=== PATIENT | female | born 1935 | race Caucasian/White ===

== ENCOUNTER 2018-05-31 11:35 | Emergency (ER) | payer MEDICARE ==
[2018-05-31 11:58] LABS: ABSOLUTE BASOPHILS # (AUTO) 0.1 10^3/uL (0.0-0.2); ABSOLUTE EOSINOPHILS # (AUTO) 0.1 10^3/uL (0.0-0.6); ABSOLUTE LYMPHOCYTES (AUTO) 2.4 10^3/uL (0.5-4.7); ABSOLUTE MONOCYTES (AUTO) 0.4 10^3/uL (0.1-1.4); ABSOLUTE NEUT (AUTO) 2.5 10^3/uL (1.7-8.2); EOSINOPHILS % (AUTO) 0.9 % (0-6); HEMATOCRIT 39.5 % (36.0-47.0); HEMOGLOBIN 13.4 g/dL (12.0-15.5); INTERNATIONAL RATION (INR) 1.03; LYMPHOCYTES % (AUTO) 44.6 % (13-45); MEAN CORPUSCULAR HGB CONC 33.9 g/dL (32.0-36.0); MEAN CORPUSCULAR VOLUME 86 fl (80-97); MONOCYTES % (AUTO) 7.1 % (3-13); PLATELET COUNT 269 10^3/uL (150-450); RED BLOOD COUNT 4.62 10^6/uL (3.72-5.28); RED CELL DISTRIBUTION WIDTH 13.5 % (11.5-14.0); SEGMENTED NEUTROPHILS % (AUTO) 46.4 % (42-78); TOTAL CELLS COUNTED % (AUTO) 100 %; WHITE BLOOD COUNT 5.4 10^3/uL (4.0-10.5)
[2018-05-31 11:59] LABS: PARTIAL THROMBOPLASTIN TIME 32.6 SEC (23.5-35.8)
--- NOTE | 2018-05-31 12:08 | RADIOLOGY REPORT (SQ) ---
EXAM DESCRIPTION: CT HEAD WITHOUT COMPLETED DATE/TIME: 05/31/2018 11:46 am REASON FOR STUDY: Facial droop COMPARISON: None. TECHNIQUE: Axial images acquired through the brain without intravenous contrast. Images reviewed wi th bone, brain and subdural windows. Additional sagittal and coronal reconstructions were generated. Images stored on PACS. All CT scanners at this facility use dose modulation, iterative reconstruction, and/or weight based d osing when appropriate to reduce radiation dose to as low as reasonably achievable (ALARA). [facility]: Dose Right [facility]: CareDose [facility]: Dose Right [facility]: Teradose 4D [facility]: [employer] RADIATION DOSE: CT Rad equipment meets quality standard of care and radiation dose reduction techniq ues were employed. CTDIvol: 53.2 mGy. DLP: 1017 mGy-cm. mGy. LIMITATIONS: None. FINDINGS: VENTRICLES: Normal size and contour. CEREBRUM: No masses. No hemorrhage. No midline shift. No evidence for acute infarction. Normal gra y/white matter differentiation. Age-appropriate bifrontal and biparietal minimal low density in the white matter from chronic small vessel ischemic change. CEREBELLUM: No masses. No hemorrhage. No alteration of density. No evidence for acute infarction. EXTRAAXIAL SPACES: No fluid collections. No masses. ORBITS AND GLOBE: No intra- or extraconal masses. Normal contour of globe without masses. CALVARIUM: No fracture. PARANASAL SINUSES: No fluid or mucosal thickening. SOFT TISSUES: No mass or hematoma. OTHER: No other significant finding. IMPRESSION: No acute findings. Age-appropriate minimal small vessel white matter disease. EVIDENCE OF ACUTE STROKE: NO. COMMUNICATION The critical information above was relayed directly by me Pertinent findings on the imaging study reported as a CRITICAL RESULT to Dr Taylor at11:48 on 018. Category of Critical Result: CT code stroke Quality ID # [id number]: Final reports with documentation of one or more dose reduction techniques (e.g., Au tomated exposure control, adjustment of the mA and/or kV according to patient size, use of iterative reconstruction technique) TECHNICAL DOCUMENTATION: JOB ID: [id number] [employer]- All Rights Reserved Reading location - IP/workstation name: [email or web address] [id number]
[2018-05-31 12:16] LABS: ALANINE AMINOTRANSFERASE 22 U/L (9-52); ALBUMIN 4.2 g/dL (3.5-5.0); ALKALINE PHOSPHATASE 53 U/L (38-126); ANION GAP 11 (5-19); ASPARTATE AMINO TRANSFERASE 27 U/L (14-36); BILIRUBIN,DIRECT 0.2 mg/dL (0.0-0.4); BILIRUBIN,TOTAL 0.7 mg/dL (0.2-1.3); BLOOD UREA NITROGEN 16 mg/dL (7-20); CALCIUM 10.2 mg/dL (8.4-10.2); CARBON DIOXIDE 32 mmol/L (22-30); CHLORIDE 96 mmol/L (98-107); CREATINE KINASE 32 U/L (30-135); GLUCOSE 151 mg/dL (75-110); SODIUM 138.7 mmol/L (137-145); TOTAL PROTEIN 6.8 g/dL (6.3-8.2)
--- NOTE | 2018-05-31 12:25 | RADIOLOGY REPORT (SQ) ---
EXAM DESCRIPTION: CHEST SINGLE VIEW COMPLETED DATE/TIME: 05/31/2018 12:08 pm REASON FOR STUDY: Facial droop COMPARISON: CT chest 11/09/2010 EXAM PARAMETERS: NUMBER OF VIEWS: One view. TECHNIQUE: Single frontal radiographic view of the chest acquired. RADIATION DOSE: NA LIMITATIONS: None. FINDINGS: LUNGS AND PLEURA: No opacities, masses or pneumothorax. No pleural effusion. MEDIASTINUM AND HILAR STRUCTURES: No masses. Contour normal. HEART AND VASCULAR STRUCTURES: Heart normal in size. Normal vasculature. BONES: No acute findings. HARDWARE: None in the chest. OTHER: No other significant finding. IMPRESSION: NO ACUTE RADIOGRAPHIC FINDING IN THE CHEST. TECHNICAL DOCUMENTATION: JOB ID: [id number] [employer]- All Rights Reserved Reading location - IP/workstation name: [email or web address]
[2018-05-31 12:28] LABS: CREATINE KINASE MB 0.76 ng/mL (<4.55)
[2018-05-31 12:29] LABS: TROPONIN I < 0.012 ng/mL
--- NOTE | 2018-05-31 13:23 | ER Document Report ---
ED General - General Chief Complaint: S/S of Possible Stroke Stated Complaint: POSSIBLE STROKE Notes: Patient brought in by EMS with chief complaint, according to them, of unequal pupils and left facial drooping and, therefore, a stroke alert. On talking to the patient and family, patient was at her doctor's office to be seen by her automatic steel tie adjuster and then by her primary care provider. She has been followed by Dr. Gastelum, automatic steel tie adjuster at [facility] for recent atrial fibrillation and has been put on several medications, including flecainide to treat this disorder. She was therefore a follow-up visit today and everything was fine and she was discharged from the automatic steel tie adjuster. She has a chronic lower back pain which causes severe cramping muscular lumbar back pains. Earlier today, before she went to her doctor's office, she took a muscle relaxer pill and a hydrocodone pill for pain. She was having one of those episodes of severe pain in the left lumbar back region on her way out of her doctors office and was sitting down waiting to leave the office go home and she became very diaphoretic and weak all over and, depending upon who you ask, she either passed out or almost passed out. She also felt some weakness of her left arm and left leg. She has not had this weakness associated with her pains previously. Her daughter and granddaughter who are here with the patient had not heard anything about her having any facial drooping or weakness or pupil size being different and no one seems to know where her EMS got that information. Patient was brought in as a stroke alert. Patient says that she is been feeling weak and nauseated but not vomiting. She did eat something this morning. Denies abdominal pain or chest pain. Denies difficulty breathing or shortness of breath. No history of any urinary tract symptoms, frequency, blood, etc. Never had kidney stones. Patient has a history of appendectomy, hysterectomy, and cholecystectomy. NIDDM , A. fib, in remission. She is on Eliquis. TRAVEL OUTSIDE OF THE [place] IN LAST 30 DAYS: No - Related Data Allergies/Adverse Reactions: codeine Allergy (Verified 05/31/18 12:49) meperidine [From Demerol] Allergy (Verified 05/31/18 12:49) Past Medical History - Social History Smoking Status: Former Smoker Chew tobacco use (# tins/day): No Frequency of alcohol use: None Drug Abuse: None Family History: Reviewed & Not Pertinent Patient has suicidal ideation: No Patient has homicidal ideation: No - Past Medical History Cardiac Medical History: Reports: Hx Hypertension - Takes Univasc twice a day, one of the doses is combined with HCTZ. Endocrine Medical History: Reports: Hx Diabetes Mellitus Type 2 - Takes only metformin Past Surgical History: Reports: Hx Appendectomy, Hx Cholecystectomy, Hx Hysterectomy Review of Systems - Review of Systems Notes: REVIEW OF SYSTEMS: CONSTITUTIONAL : Denies fever. EENT: Denies eye, ear, nose or mouth or throat pain or other symptoms. CARDIOVASCULAR: Denies chest pain. RESPIRATORY: Denies cough, chest congestion, or shortness of breath. GASTROINTESTINAL: Denies abdominal pain. Having significant nausea but not vomiting. No diarrhea. GENITOURINARY: Denies difficulty or painful urinating, urinary frequency, blood in urine. MUSCULOSKELETAL: Denies back pain except see HPI. Denies neck pain. Denies joint pain or swelling. SKIN: Denies rash or skin lesions. NEUROLOGICAL: See HPI. Denies headache. Denies sensory loss or motor deficits. ALL OTHER SYSTEMS REVIEWED AND NEGATIVE. Physical Exam - Vital signs Vitals: Pulse Ox 97 05/31/18 11:37 Interpretation: Normal - Notes Notes: PHYSICAL EXAMINATION: GENERAL: Well-appearing, in no acute distress. No complaints at this time. Says her back pain is better. HEAD: Atraumatic, normocephalic. No facial drooping or asymmetry to me. EYES: Pupils equal round and reactive to light, extraocular movements intact. ENT: oropharynx clear without exudates. Moist mucous membranes. NECK: Normal range of motion, supple. No carotid bruits heard. LUNGS: Breath sounds clear and equal bilaterally. HEART: Regular rate and rhythm without murmurs. No irregular rhythm. ABDOMEN: Soft, nontender. No guarding or rebound. No masses. BACK: No tenderness throughout entire back. EXTREMITIES: Normal range of motion without pain. NEUROLOGICAL: Normal speech, normal gait. Normal sensory, motor, and reflex exams. Awake, alert, and oriented x3. PSYCH: Normal mood, normal affect. SKIN: Warm, dry, no rashes. Course - Re-evaluation Re-evalutation: 05/31/18 13:[address] Gastelum, patient's automatic steel tie adjuster. He says that she has not had a right bundle-branch before but he attributes it to her medications which include flecainide and a beta-aureliano. He noted a right bundle on her EKG when EMS was picking her up from the office. He did not have any concerns about this finding at this time. 05/31/18 19:00 Patient remained stable throughout her stay in our department. Her workup came back all essentially normal. I suspect she had a vasovagal response to painful back pain which is chronic. Reviewed all the labs and EKG and x-rays with the patient. Made her aware of the right bundle branch block present on her EKG today. I feel she can travel home and follow-up with her primary care. - Vital Signs Vital signs: Temp Pulse Resp BP Pulse Ox 53 L 11 L 153/58 H 97 05/31/18 11:52 05/31/18 15:01 05/31/18 15:01 05/31/18 14:59 - Laboratory Result Diagrams: 05/31/18 11:18 05/31/18 11:18 Laboratory results interpreted by me: 05/31/18 11:18 Chloride 96 L Carbon Dioxide 32 H Glucose 151 H - Diagnostic Test Radiology reviewed: Image reviewed, Reports reviewed - CTA of the chest, abdomen , and pelvis is essentially normal. No evidence of dissection or aneurysms. - EKG Interpretation by Me EKG shows normal: Sinus rhythm Rate: Normal [place]/QRS: RBBB - New finding since EKG done here 2 years ago. Discussed with patient's automatic steel tie adjuster, Dr. Gastelum, who says that that is apparently a new finding, but he is not concerned about it because she is on several new medications treating her atrial fib, which could cause her to develop a bundle branch block. Discharge - Discharge Clinical Impression: Left flank pain, chronic, Vasovagal episode, Near syncope Condition: Stable Disposition: HOME, SELF-CARE Additional Instructions: Flank Pain We weren't able to prove an exact cause for your flank pain. Pain in the flank can be caused by a muscle strain or spasm. Sometimes a kidney stone causes pain, but can't be found on our tests. Infection in the kidney should be evident on a urine test. Early shingles can occasionally cause flank pain, without the rash that proves the diagnosis. On rare occasions, disease of the pancreas, aorta, spleen, or colon can create pain in the flank. At this time, there's no evidence of a dangerous condition, and it seems safe for you to be at home. If the pain goes away and does not come back, no further testing will be needed. If pain persists, or becomes more severe, we may need to repeat some tests or order additional new testing. Blood in the urine, urgency to urinate frequently, and pain that radiates to the groin can indicate a kidney stone. Fever may mean that the pain is due to infection, either of the kidney or the colon (diverticulitis). If your pain is early shingles, you should develop an eruption of blisters in the painful area within a few days. Call the doctor or return if you have pain that is spreading or becoming more severe, pain that does not resolve with time, fever, or any other new symptoms. Vasovagal Symptoms Your symptoms seem to be due to a fall in blood pressure, caused by the interaction of your nervous system with your circulatory system. This can result in abnormally slow pulse rate, faintness, abnormal sensations, low blood pressure, difficulty with vision, or fainting (syncope). Vasovagal symptoms may be brought on by emotional distress, pain, dehydration, bleeding, or medication effects. Often, no cause can be identified. Your exam has revealed no signs of a serious problem. Usually, no further tests are required. However, if further workup has been recommended it's important that you follow up as instructed. Should you feel lightheaded or "about to faint," you should sit or lie down as quickly as possible. The episode will usually pass. Recurring symptoms will require further evaluation to determine the cause. Call the physician if you develop severe prolonged dizziness, headache, chest pain, shortness of breath, or other new symptoms. NEAR SYNCOPAL EPISODE: Syncope or near syncope (fainting or near-fainting) can occur from many different health problems. Or it can be a simple fainting spell requiring no treatment. It is safe for you to go home, but further evaluation will likely be necessary. Your work-up may include tests for internal bleeding, heart disease, medication problems, or near-strokes. Tests are not always required, however, depending on the nature of your problem. The warning signs of an impending faint include: dizziness, lightheadedness , nausea, hot flashes, tingling, and weakness. If this happens, lay down and put your feet up, then wait until all of these symptoms have passed before standing up again. If these episodes become recurrent, or if you develop chest pain, heart palpitations, mental confusion, blurred vision, or headache, then you should call the physician, or go to the emergency room. NORMAL EXAM AND WORKUP: At this time, your examination and workup show no significant abnormality. No significant abnormal physical findings were noted. All laboratory, EKG, and imaging (x-ray, CT scans, ultrasound) studies that were ordered show no significant abnormality. Although your examination and all studies that were ordered showed no significant abnormal finding, there are no examinations and no studies that are 100% accurate. There is always the possibility that some abnormality could exist and not be detected with physical examination or within the limits and capabilities of laboratory and other studies. You should return or follow up as you were instructed on your visit today for further evaluation if your symptoms do not resolve. At this time, your entire workup is completely normal. I feel it safe for you to go home. If you have new or worsening symptoms at any time, return for us to reevaluate your condition. FOLLOW-UP CARE: If you have been referred to a physician for follow-up care, call the physician s office for an appointment as you were instructed or within the next two days. If you experience worsening or a significant change in your symptoms, notify the physician immediately or return to the Emergency Department at any time for re-evaluation. Referrals: SANCHEZ BOYD MD [Primary Care Provider] - Follow up as needed
--- NOTE | 2018-05-31 13:56 | RADIOLOGY REPORT (SQ) ---
EXAM DESCRIPTION: CTA CHEST; CTA ABDOMEN/PELVIS W WO COMPLETED DATE/TIME: 05/31/2018 1:30 pm REASON FOR STUDY: Near syncope, severe left lumbar back pain COMPARISON: None. CONTRAST TYPE AND DOSE: contrast/concentration: Isovue 370.00 mg/ml; Total Contrast Delivered: 60.0 ml; Total Saline Delivered: 70.0 ml Contrast bolus optimized for the thoracic and abdominal aorta RENAL FUNCTION: Creatinine 0.73. TECHNIQUE: CT Angiogram of the chest performed using helical scanning technique with dynamic intrave nous contrast injection. Images reviewed with lung, soft tissue and bone windows. Reconstructed obli que, coronal and sagittal MPR images through the pulmonary arteries and aorta reviewed. All images s tored on PACS. CT Angio of the abdomen and pelvis performed with intravenous and without oral contrastusing helical scanning technique with dynamic intravenous contrast injection. Images reviewed with lung, soft tiss ue and bone windows. Reconstructed coronal and sagittal MPR images of the abdominal aorta reviewed. Delayed images for evaluation of the urinary system also acquired and evaluated. All images stored o n PACS. All CT scanners at this facility use dose modulation, iterative reconstruction, and/or weight based d osing when appropriate to reduce radiation dose to as low as reasonably achievable (ALARA). [facility]: Dose Right [facility]: CareDose [facility]: Dose Right [facility]: Teradose 4D [facility]: [employer] RADIATION DOSE: CT Rad equipment meets quality standard of care and radiation dose reduction techniq ues were employed. CTDIvol: 7.0 - 17.0 mGy. DLP: 960 mGy-cm. . LIMITATIONS: None. FINDINGS: CHEST: LUNGS AND PLEURA: No opacities, nodules, masses. No pneumothorax. No effusions. HILAR AND MEDIASTINAL STRUCTURES: No identified masses or abnormal nodes. HEART AND VASCULAR STRUCTURES: No thoracic aortic aneurysm or dissection. No central pulmonary embol i. No pericardial effusion. HARDWARE: None. THYROID AND OTHER SOFT TISSUES: No masses. No adenopathy. BONES: No significant finding. OTHER: No other significant finding. ABDOMEN AND PELVIS: LIVER: Normal size. No masses. No dilated ducts. SPLEEN: Normal size. No focal lesions. PANCREAS: No masses. No significant calcifications. No adjacent inflammation or peripancreatic fluid collections. Pancreatic duct not dilated. GALLBLADDER: Surgically absent ADRENAL GLANDS: No significant masses or asymmetry. RIGHT KIDNEY AND URETER: No solid masses. No significant calcification. No hydronephrosis or hydroure ter. LEFT KIDNEY AND URETER: No solid masses. No significant calcification. No hydronephrosis or hydrouret er. AORTA AND VESSELS: No aneurysm. No dissection. Renal arteries, SMA, celiac without stenosis. RETROPERITONEUM: No retroperitoneal adenopathy, hemorrhage or masses. BOWEL AND PERITONEAL CAVITY: No CT evidence of bowel obstruction. No free intraperitoneal air or flu id. Moderate stool in the colon APPENDIX: Not identified, surgically absent according to patient history ABDOMINAL WALL: No masses. No hernias. PELVIS: No mass or free fluid. Normal bladder. Post hysterectomy BONES: No significant or acute findings. OTHER: Report discussed with Dr. Taylor in the emergency room IMPRESSION: No CT angio evidence of thoracic or abdominal aortic aneurysm or dissection. No acute cardiopulmonary changes. No bowel obstruction or free intraperitoneal air/ fluid. Post cholecystectomy appendectomy and hysterectomy TECHNICAL DOCUMENTATION: JOB ID: [id number] Quality ID # [id number]: Final reports with documentation of one or more dose reduction techniques (e.g., Au tomated exposure control, adjustment of the mA and/or kV according to patient size, use of iterative reconstruction technique) 2010 [employer]- All Rights Reserved Reading location - IP/workstation name: [email or web address]
[2018-05-31 14:28] LABS: APPEARANCE,URINE CLEAR; BILIRUBIN,URINE NEGATIVE (NEGATIVE); COLOR,URINE YELLOW; GLUCOSE, URINE NEGATIVE (NEGATIVE); KETONES,URINE NEGATIVE (NEGATIVE); LEUKOCYTE ESTERASE,URINE NEGATIVE (NEGATIVE); NITRITE,URINE NEGATIVE (NEGATIVE); PROTEIN,URINE NEGATIVE (NEGATIVE); URINE SPECIFIC GRAVITY 1.018; UROBILINOGEN,URINE NEGATIVE mg/dL (<2.0)
[2018-05-31 15:23] VITALS: BP 153/58
--- NOTE | 2018-05-31 21:30 | EKG REPORT ---
SEVERITY:- ABNORMAL ECG - SINUS RHYTHM RIGHT BUNDLE BRANCH BLOCK : Confirmed by: Elisa Hardy MD 31-May-2018 21:28:47
== END 2018-05-31 15:27 | disposition home or self-care (01) ==
LOC: ER 11:35
DX: G89.29 Other chronic pain (principal); M54.5 Low back pain; R10.9 Unspecified abdominal pain; R53.1 Weakness; R11.0 Nausea; R55 Syncope and collapse; R42 Dizziness and giddiness; E11.9 Type 2 diabetes mellitus without complications; I48.91 Unspecified atrial fibrillation; Z87.891 Personal history of nicotine dependence; Z90.710 Acquired absence of both cervix and uterus; Z79.84 Long term (current) use of oral hypoglycemic drugs; Z90.49 Acquired absence of other specified parts of digestive tract; Z79.02 Long term (current) use of antithrombotics/antiplatelets
CPT/HCPCS: 36415; 70450; 71045; 71275; 74174; 80053; 81001; 82550; 82553; 84484; 85025; 85610; 85730; 93005; 93010; 99285

== ENCOUNTER 2019-01-19 12:25 | Emergency (ER) | payer MEDICARE ==
[2019-01-19] MEDS ORDERED: ASPIRIN 81 MG TABLET, CHEWABLE PO ONE (13:37)
--- NOTE | 2019-01-19 14:45 | RADIOLOGY REPORT (SQ) ---
EXAM DESCRIPTION: CHEST SINGLE VIEW COMPLETED DATE/TIME: 01/19/2019 2:35 pm REASON FOR STUDY: syncope COMPARISON: CT chest dated 05/31/2018 EXAM PARAMETERS: NUMBER OF VIEWS: One view. TECHNIQUE: Single frontal radiographic view of the chest acquired. RADIATION DOSE: NA LIMITATIONS: None. FINDINGS: LUNGS AND PLEURA: No opacities, masses or pneumothorax. No pleural effusion. MEDIASTINUM AND HILAR STRUCTURES: No masses. Contour normal. HEART AND VASCULAR STRUCTURES: Heart normal in size. Normal vasculature. BONES: No acute findings. HARDWARE: None in the chest. OTHER: No other significant finding. IMPRESSION: NO ACUTE RADIOGRAPHIC FINDING IN THE CHEST. TECHNICAL DOCUMENTATION: JOB ID: [id number] [employer]- All Rights Reserved Reading location - IP/workstation name: [email or web address]
--- NOTE | 2019-01-19 14:59 | ER Document Report ---
ED General - General Chief Complaint: Syncope Stated Complaint: SYNCOPE Time Seen by Provider: 01/19/19 13:29 Primary Care Provider: SANCHEZ BOYD MD [Primary Care Provider] - Follow up as needed Notes: Very well-appearing 83-year-old female with paroxysmal A. fib on Eliquis, hypertension brought in by ambulance from [facility] of her doctor's appointment and she had a syncopal episode. Patient states she was finished with her appointment was standing there when she felt weird got lightheaded and fell to her knees where her granddaughter caught her and set her down. She had an episode of urinary incontinence during that time. Orthostatic vital signs were performed by EMS and were negative. It is unclear what happened but had a similar episode one year ago. Workup was negative then. Patient denies fever, chills, shortness of breath or chest pain, nausea, vomiting, diarrhea, urinary TRAVEL OUTSIDE OF THE [place] IN LAST 30 DAYS: No - Related Data Allergies/Adverse Reactions: codeine Allergy (Verified 05/31/18 12:49) meperidine [From Demerol] Allergy (Verified 05/31/18 12:49) Past Medical History - Social History Smoking Status: Never Smoker Family History: Reviewed & Not Pertinent - Past Medical History Cardiac Medical History: Reports: Hx Hypertension - Takes Univasc twice a day, one of the doses is combined with HCTZ. Endocrine Medical History: Reports: Hx Diabetes Mellitus Type 2 - Takes only metformin Renal/ Medical History: Denies: Hx Peritoneal Dialysis Past Surgical History: Reports: Hx Appendectomy, Hx Cholecystectomy, Hx Hysterectomy Review of Systems - Review of Systems Constitutional: See HPI EENT: No symptoms reported Cardiovascular: See HPI Respiratory: See HPI Gastrointestinal: See HPI Genitourinary: See HPI Female Genitourinary: No symptoms reported Musculoskeletal: No symptoms reported Skin: No symptoms reported Hematologic/Lymphatic: No symptoms reported Neurological/Psychological: See HPI Physical Exam - Vital signs Vitals: Temp Pulse Resp BP Pulse Ox 98 F 55 L 10 L 140/60 H 100 01/19/19 12:37 01/19/19 12:37 01/19/19 12:37 01/19/19 12:37 01/19/19 12:37 - Notes Notes: PHYSICAL EXAMINATION: Reviewed vital signs and charting by RN GENERAL: Alert, interacts well. No acute distress. HEAD: Normocephalic, atraumatic. EYES: Pupils equal, round, and reactive to light. Extraocular movements intact. ENT: Oral mucosa moist, tongue midline. NECK: Full range of motion. Supple. Trachea midline. LUNGS: Clear to auscultation bilaterally, no wheezes, rales, or rhonchi. No respiratory distress. HEART: Regular rate and rhythm. No murmur ABDOMEN: soft, non-tender. Non-distended. Bowel sounds present in all 4 quadrants. no McBurney's point tenderness, no Guerra sign. EXTREMITIES: Moves all 4 extremities spontaneously. No edema, No cyanosis. BACK: no cervical, thoracic, lumbar midline tenderness. No saddle anesthesia, normal distal neurovascular exam. NEUROLOGICAL: Alert and oriented x3. Normal speech. PSYCH: Normal affect, normal mood. SKIN: Warm, dry, normal turgor. No rashes or lesions noted. Course - Re-evaluation Re-evalutation: 01/19/19 14:58 Overall well-appearing 83-year-old female with syncopal episode. Workup initiated. Patient with sinus bradycardia at baseline because she is on metoprolol, flecainide, and some eyedrops that she states will lower her heart rate. Granddaughter at bedside states patient does frequently hold her breath. Patient did not hit her head so I do not believe a CT head is necessary at this time. 01/19/19 15:59 All lab work was normal. After further interview granddaughter states that patient frequently holds her breath and with her baseline bradycardia she most likely had a vasovagal episode. Heart score 3. I have very low suspicion for ACS. At this time patient is safe and stable for discharge home. - Vital Signs Vital signs: Temp Pulse Resp BP Pulse Ox 98.0 F 55 L 14 145/59 H 99 01/19/19 13:00 01/19/19 12:37 01/19/19 15:02 01/19/19 15:02 01/19/19 15:02 - Laboratory Result Diagrams: 01/19/19 14:37 01/19/19 14:37 Laboratory results interpreted by me: 01/19/19 14:37 Sodium 134.7 L Glucose 112 H Discharge - Discharge Clinical Impression: Syncope Qualifiers: Syncope type: vasovagal syncope Qualified Code(s): R55 - Syncope and collapse Disposition: HOME, SELF-CARE Instructions: Near Syncopal Episode ([facility]) Additional Instructions: You were seen in the emergency department this afternoon for passing out. Because your heart rate is so low at his baseline and the fact that your granddaughter states she tend to hold your breath he very well could have had what is called a vasovagal syncopal episode. This is when the vagus nerve gets stimulated from things like holding her breath and it causes your heart rate to lower which causes you to pass out. All of your lab work and the workup today was negative for any emergent process. It would be worthwhile to follow-up with your radio message router to discuss this and see if there is any medication changes that can be made. Also, it might be beneficial to follow-up with a welding machine operator arc to get to the root cause of this gas problem that you are having. If you pass out again, have any extremity weakness, facial droop, severe chest pain or shortness of breath, please merely return to the emergency department. Referrals: SANCHEZ BOYD MD [Primary Care Provider] - Follow up as needed
[2019-01-19 15:06] LABS: ABSOLUTE LYMPHOCYTES (AUTO) 2.1 10^3/uL (0.5-4.7); ABSOLUTE MONOCYTES (AUTO) 0.4 10^3/uL (0.1-1.4); ABSOLUTE NEUT (AUTO) 4.4 10^3/uL (1.7-8.2); BASOPHILS % (AUTO) 0.6 % (0-2); EOSINOPHILS % (AUTO) 0.5 % (0-6); HEMATOCRIT 37.4 % (36.0-47.0); HEMOGLOBIN 12.7 g/dL (12.0-15.5); LYMPHOCYTES % (AUTO) 30.3 % (13-45); MEAN CORPUSCULAR HEMOGLOBIN 29.2 pg (27.0-33.4); MEAN CORPUSCULAR VOLUME 86 fl (80-97); MONOCYTES % (AUTO) 5.6 % (3-13); PLATELET COUNT 249 10^3/uL (150-450); RED BLOOD COUNT 4.36 10^6/uL (3.72-5.28); RED CELL DISTRIBUTION WIDTH 13.5 % (11.5-14.0); TOTAL CELLS COUNTED % (AUTO) 100 %; WHITE BLOOD COUNT 6.9 10^3/uL (4.0-10.5)
[2019-01-19 15:12] LABS: ALANINE AMINOTRANSFERASE 23 U/L (9-52); ALBUMIN 4.2 g/dL (3.5-5.0); ALKALINE PHOSPHATASE 68 U/L (38-126); ANION GAP 9 (5-19); ASPARTATE AMINO TRANSFERASE 29 U/L (14-36); BILIRUBIN,DIRECT 0.2 mg/dL (0.0-0.4); BILIRUBIN,TOTAL 0.5 mg/dL (0.2-1.3); BLOOD UREA NITROGEN 14 mg/dL (7-20); CALCIUM 9.9 mg/dL (8.4-10.2); CARBON DIOXIDE 28 mmol/L (22-30); CHLORIDE 98 mmol/L (98-107); GLUCOSE 112 mg/dL (75-110); POTASSIUM 4.3 mmol/L (3.6-5.0); SODIUM 134.7 mmol/L (137-145); TOTAL PROTEIN 6.4 g/dL (6.3-8.2)
[2019-01-19 19:02] VITALS: BP 129/49
--- NOTE | 2019-01-19 21:56 | EKG REPORT ---
SEVERITY:- BORDERLINE ECG - SINUS RHYTHM BORDERLINE IVCD WITH LAD : Confirmed by: Alma Ruvalcaba 19-Jan-2019 21:55:35
== END 2019-01-19 19:02 | disposition home or self-care (01) ==
LOC: ER 12:25
DX: R55 Syncope and collapse (principal); I48.0 Paroxysmal atrial fibrillation; Z79.01 Long term (current) use of anticoagulants; I10 Essential (primary) hypertension; R32 Unspecified urinary incontinence; Z79.899 Other long term (current) drug therapy; E11.9 Type 2 diabetes mellitus without complications; Z79.84 Long term (current) use of oral hypoglycemic drugs
CPT/HCPCS: 36415; 71045; 80053; 84484; 85025; 93005; 93010; 99284

== ENCOUNTER 2019-12-25 00:02 | Observation (INO) | payer MEDICARE ==
--- NOTE | 2019-12-25 00:20 | ER Document Report ---
ED Medical Screen (RME) - General TRAVEL OUTSIDE OF THE U.S. IN LAST 30 DAYS: No <JASPER GARCIA - Last Filed: 12/25/19 00:19> <BRAD WALDEN - Last Filed: 12/25/19 01:46> - General Chief Complaint: Chest Tightness Stated Complaint: CHEST TIGHTNESS/FEELS LIKE HIGH PULSE Time Seen by Provider: 12/25/19 00:18 Primary Care Provider: SANCHEZ BOYD MD [Primary Care Provider] - Follow up as needed Notes: 84-year-old female with history of A. fib presents for dizziness, palpitations, chest tightness that started tonight around 10 PM. Patient states she felt a little lightheaded earlier in the day. Patient states she checked her heart rate and it was in the 140s for over an hour before she decided to come in. Lungs clear to auscultation bilaterally. I have greeted and performed a rapid initial assessment of this patient. A comprehensive ED assessment and evaluation of the patient, analysis of test results and completion of the medical decision making process with be conducted by additional ED providers. (JASPER GARCIA) - Related Data Allergies/Adverse Reactions: codeine Allergy (Verified 12/25/19 00:18) meperidine [From Demerol] Allergy (Verified 12/25/19 00:18) Past Medical History - Past Medical History Cardiac Medical History: Reports: Hx Hypertension - Takes Univasc twice a day, one of the doses is combined with HCTZ. Endocrine Medical History: Reports: Hx Diabetes Mellitus Type 2 - Takes only metformin Renal/ Medical History: Denies: Hx Peritoneal Dialysis Past Surgical History: Reports: Hx Appendectomy, Hx Cholecystectomy, Hx Hysterectomy <JASPER GARCIA - Last Filed: 12/25/19 00:19> Physical Exam - Vital signs Vitals: Temp Pulse Resp BP Pulse Ox 98.2 F 81 18 150/75 H 97 12/25/19 00:14 12/25/19 00:14 12/25/19 00:14 12/25/19 00:14 12/25/19 00:14 Course - Laboratory Result Diagrams: 12/25/19 00:30 12/25/19 00:30 - EKG Interpretation by Ks EKG shows normal: Sinus rhythm, [place], Intervals, QRS Complexes Rate: Normal [place]/QRS: RBBB When compared to previous EKG there are: Other - new RBBB <BRAD WALDEN H - Last Filed: 12/25/19 01:46> - Vital Signs Vital signs: Temp Pulse Resp BP Pulse Ox 98.2 F 81 18 150/75 H 97 12/25/19 00:14 12/25/19 00:14 12/25/19 00:14 12/25/19 00:14 12/25/19 00:14 - Laboratory Laboratory results interpreted by me: 12/25/19 00:30 Sodium 133.1 L BUN 22 H Glucose 148 H Doctor's Discharge <JASPER GARCIA R - Last Filed: 12/25/19 00:19> <BRAD WALDEN - Last Filed: 12/25/19 01:46> - Discharge Referrals: SANCHEZ BOYD MD [Primary Care Provider] - Follow up as needed
[2019-12-25] MEDS ORDERED: ASPIRIN 81 MG TABLET, CHEWABLE PO ONE (00:30)
[2019-12-25 00:49] LABS: ABSOLUTE BASOPHILS # (AUTO) 0.1 10^3/uL (0.0-0.2); ABSOLUTE EOSINOPHILS # (AUTO) 0.1 10^3/uL (0.0-0.6); ABSOLUTE LYMPHOCYTES (AUTO) 3.2 10^3/uL (0.5-4.7); ABSOLUTE MONOCYTES (AUTO) 0.7 10^3/uL (0.1-1.4); ABSOLUTE NEUT (AUTO) 4.8 10^3/uL (1.7-8.2); BASOPHILS % (AUTO) 0.9 % (0-2); EOSINOPHILS % (AUTO) 0.6 % (0-6); HEMATOCRIT 39.9 % (36.0-47.0); HEMOGLOBIN 13.4 g/dL (12.0-15.5); LYMPHOCYTES % (AUTO) 36.2 % (13-45); MEAN CORPUSCULAR HEMOGLOBIN 29.8 pg (27.0-33.4); MEAN CORPUSCULAR HGB CONC 33.6 g/dL (32.0-36.0); MEAN CORPUSCULAR VOLUME 89 fl (80-97); MONOCYTES % (AUTO) 7.8 % (3-13); PLATELET COUNT 283 10^3/uL (150-450); RED CELL DISTRIBUTION WIDTH 13.6 % (11.5-14.0); SEGMENTED NEUTROPHILS % (AUTO) 54.5 % (42-78); TOTAL CELLS COUNTED % (AUTO) 100 %; WHITE BLOOD COUNT 8.9 10^3/uL (4.0-10.5)
[2019-12-25 00:59] LABS: INTERNATIONAL RATION (INR) 0.93; PROTHROMBIN TIME 12.5 SEC (11.4-15.4)
[2019-12-25 01:00] LABS: PARTIAL THROMBOPLASTIN TIME 33.8 SEC (23.5-35.8)
[2019-12-25 01:09] LABS: ALBUMIN 4.1 g/dL (3.5-5.0); ALKALINE PHOSPHATASE 68 U/L (38-126); ANION GAP 10 (5-19); ASPARTATE AMINO TRANSFERASE 25 U/L (14-36); BILIRUBIN,TOTAL 0.5 mg/dL (0.2-1.3); BLOOD UREA NITROGEN 22 mg/dL (7-20); CALCIUM 9.4 mg/dL (8.4-10.2); CARBON DIOXIDE 22 mmol/L (22-30); CHLORIDE 101 mmol/L (98-107); GLUCOSE 148 mg/dL (75-110); POTASSIUM 3.7 mmol/L (3.6-5.0); TOTAL PROTEIN 6.5 g/dL (6.3-8.2)
--- NOTE | 2019-12-25 01:53 | ER Document Report ---
ED General - General Chief Complaint: Palpitations Stated Complaint: CHEST TIGHTNESS/FEELS LIKE HIGH PULSE Time Seen by Provider: 12/25/19 00:18 Primary Care Provider: SANCHEZ BOYD MD [Primary Care Provider] - Follow up as needed Mode of Arrival: Ambulatory Information source: Patient TRAVEL OUTSIDE OF THE [place] IN LAST 30 DAYS: No - HPI Onset: Other - last night Onset/Duration: Sudden Quality of pain: Pressure Associated symptoms: Chest pain, Other - palpitations Exacerbated by: Denies Relieved by: Denies Similar symptoms previously: No Recently seen / treated by doctor: No Notes: 84 year old female with a history of AFib on Flecanide, HTN, DM here for palpitations and chest tightness that lasted about an hour last night. The patient says she has not been in AFib since being treated with Flecanide. The patient says her heart rate was in the 150s and she could feel palpitations which lasted about an hour. The patient says she had a chemical stress test about 3 years ago which was unremarkable. - Related Data Allergies/Adverse Reactions: codeine Allergy (Verified 12/25/19 00:18) meperidine [From Demerol] Allergy (Verified 12/25/19 00:18) Home Medications: Eliquis. Flacainide Past Medical History - General Information source: Patient - Social History Smoking Status: Former Smoker Frequency of alcohol use: None Drug Abuse: None Lives with: Family Family History: Reviewed & Not Pertinent Patient has suicidal ideation: No Patient has homicidal ideation: No - Past Medical History Cardiac Medical History: Reports: Hx Atrial Fibrillation, Hx Hypertension - Takes Univasc twice a day, one of the doses is combined with HCTZ. Endocrine Medical History: Reports: Hx Diabetes Mellitus Type 2 - Takes only metformin Renal/ Medical History: Denies: Hx Peritoneal Dialysis Past Surgical History: Reports: Hx Appendectomy, Hx Cholecystectomy, Hx Hysterectomy Review of Systems - Review of Systems Constitutional: No symptoms reported EENT: No symptoms reported Cardiovascular: Chest pain, Palpitations Respiratory: No symptoms reported Gastrointestinal: No symptoms reported Genitourinary: No symptoms reported Female Genitourinary: No symptoms reported Musculoskeletal: No symptoms reported Skin: No symptoms reported Hematologic/Lymphatic: No symptoms reported Neurological/Psychological: No symptoms reported -: Yes All other systems reviewed and negative Physical Exam - Vital signs Vitals: Temp Pulse Resp BP Pulse Ox 98.2 F 81 18 150/75 H 97 12/25/19 00:14 12/25/19 00:14 12/25/19 00:14 12/25/19 00:14 12/25/19 00:14 - Notes Notes: GENERAL: Well-appearing, well-nourished and in no acute distress. HEAD: Atraumatic, normocephalic. EYES: Pupils equal round and reactive to light, extraocular movements intact, sclera anicteric, conjunctiva are normal. ENT: TMs normal, nares patent, oropharynx clear without exudates. Moist mucous membranes. NECK: Normal range of motion, supple without lymphadenopathy or JVD. LUNGS: Breath sounds clear to auscultation bilaterally and equal. No wheezes rales or rhonchi. HEART: Regular rate and rhythm without murmurs, rubs or gallops. ABDOMEN: Soft, nontender, normoactive bowel sounds. No guarding, no rebound. No masses appreciated. EXTREMITIES: Normal range of motion, no pitting or edema. No clubbing or cyanosis. NEUROLOGICAL: Cranial nerves II through XII grossly intact. Normal speech, normal gait. PSYCH: Normal mood, normal affect. SKIN: Warm, Dry, normal turgor, no rashes or lesions noted. Course - Re-evaluation Re-evalutation: 12/25/19 07:30 The patient sounds like she went into AFib with RVR at home. That said, the patient could have had a different arrhythmia as well. The patient's initial Trop in the ER was completely negative and the second Trop was slightly positive at 0.06. Will admit for OBs given her age and rise in Trop. - Vital Signs Vital signs: Temp Pulse Resp BP Pulse Ox 98.2 F 81 13 133/68 H 98 12/25/19 00:14 12/25/19 00:14 12/25/19 07:01 12/25/19 07:00 12/25/19 07:01 - Laboratory Result Diagrams: 12/25/19 00:30 12/25/19 00:30 Laboratory results interpreted by me: 12/25/19 00:30 Sodium 133.1 L BUN 22 H Glucose 148 H - Diagnostic Test Radiology reviewed: Image reviewed, Reports reviewed - EKG Interpretation by Me EKG shows normal: Sinus rhythm, [place], Intervals Rate: Normal [place]/QRS: RBBB When compared to previous EKG there are: Changes noted - new RBBB Discharge - Discharge Clinical Impression: Palpitations Chest pain Qualifiers: Chest pain type: unspecified Qualified Code(s): R07.9 - Chest pain, unspecified Condition: Stable Disposition: ADMITTED OBSERVATION Admitting Provider: Jovany (Hospitalist) Unit Admitted: Telemetry Referrals: SANCHEZ BOYD MD [Primary Care Provider] - Follow up as needed
--- NOTE | 2019-12-25 02:21 | RADIOLOGY REPORT (SQ) ---
EXAM DESCRIPTION: XR CHEST 2 VIEWS COMPLETED DATE/TME: 12/25/2019 00:18 CLINICAL HISTORY: 84 years, Female, chest pain COMPARISON: 01/19/2019 chest. NUMBER OF VIEWS: 2 TECHNIQUE: 2 views of the chest LIMITATIONS: None. FINDINGS: The heart size is normal. Osteopenia. COPD. Mild atheromatous change thoracic aorta. Minor scarring left lung base. No pneumothorax IMPRESSION: COPD. No acute cardiopulmonary process copyright 2010 [employer]- All Rights Reserved
[2019-12-25] MEDS ORDERED: POTASSIUM CHLORIDE 10 MEQ TABLET.ER PO ONE (02:49)
[2019-12-25] MEDS ORDERED: ACETAMINOPHEN 325 MG TABLET PO PRN (08:35)
[2019-12-25] MEDS ORDERED: MAG HYDROX/AL HYDROX/SIMETH SUSP 30 ML UDCUP PO PRN (08:45)
[2019-12-25] MEDS ORDERED: GLUCAGON,HUMAN RECOMB 1 MG INJ SUBCUT PRN (08:53)
[2019-12-25] MEDS ORDERED: DEXTROSE 40% GEL 15 GM TUBE PO PRN ×2 (08:53)
[2019-12-25] MEDS ORDERED: DEXTROSE 50%-WATER 25 GM/50 ML DISP.SYRIN IV PRN ×2 (08:53)
--- NOTE | 2019-12-25 09:09 | PDOC H&P ---
History of Present Illness Admission Date/PCP: 12/25/19 08:37 SANCHEZ BOYD MD Patient complains of: Chest heaviness, palpitations History of Present Illness: SHILO SINGH is a 84 year old female with a history of prediabetes on metformin, atrial fibrillation on Eliquis, hypertension, HLD, mild dementia, who presents to the hospital after experiencing an episode of chest heaviness associated with palpitations. The episode started last night while patient was sleeping around 10 PM. Patient describes the chest pain as a heaviness sensation over her left and substernal region, currently about a 4/10 but was as bad as a 7/10, without radiation, and no identified alleviating or exacerbating factors. Patient has had some episodes in the past but has not been able to identify any particular relationship with exertion or rest. Patient denied any shortness of breath. Patient also noted that her heart was racing at 10 PM and she checked her pulse which was around 140 to 150 bpm. This lasted an hour before it resolved. However chest heaviness still persists at this time but is much less at 4/10. Patient takes flecainide for A. fib and Eliquis and states that A. fib has not acted up in a few years. She follows with Dr. Gastelum. States her last stress test was 3 years ago which was normal. Past Medical History Cardiac Medical History: Reports: Atrial Fibrillation, Hypertension - Takes Univasc twice a day, one of the doses is combined with HCTZ. Endocrine Medical History: Reports: Other - States that she has prediabetes Past Surgical History Past Surgical History: Reports: Appendectomy, Cholecystectomy, Hysterectomy Social History Lives with: Family Smoking Status: Former Smoker - Advance Directive Resuscitation Status: Full Code Family History Family History: Hypertension, Other - AFib in sister Parental Family History Reviewed: Yes Children Family History Reviewed: NA Sibling(s) Family History Reviewed.: Yes Medication/Allergy Home Medications: Potassium Chloride 10 meq PO BID #10 tablet.sa 03/01/16 Amlodipine/Atorvastatin [Amlodipine-Atorvast 2.5-10 mg] 1 each PO DAILY 05/31/18 Atorvastatin Calcium [Lipitor 20 mg Tablet] 20 mg PO QHS 05/31/18 Flecainide Acetate [Tambocor 100 Mg Tablet] 50 mg PO BID 05/31/18 Losartan/Hydrochlorothiazide [Hyzaar 100-12.5 Tablet] 1 each PO DAILY 05/31/18 Metformin HCl 500 mg PO NOON 05/31/18 Timolol Maleate [Istalol] 1 drop OP DAILY 05/31/18 Allergies/Adverse Reactions: codeine Allergy (Verified 12/25/19 00:18) meperidine [From Demerol] Allergy (Verified 12/25/19 00:18) Review of Systems Constitutional: ABSENT: chills, fever(s) Eyes: ABSENT: visual disturbances - Not acutely Nose, Mouth, and Throat: ABSENT: headache(s) Cardiovascular: PRESENT: chest pain Respiratory: ABSENT: dyspnea Gastrointestinal: ABSENT: abdominal pain, nausea, vomiting Integumentary: ABSENT: diaphoresis Neurological: PRESENT: dizziness - Intermittent but chronic. ABSENT: confusion Psychiatric: ABSENT: anxiety Endocrine: PRESENT: other - Denies diabetes but states prediabetic. ABSENT: polyuria Allergic/Immunologic: PRESENT: seasonal rhinorrhea Physical Exam Vital Signs: Temp Pulse Resp BP Pulse Ox 98.2 F 81 11 L 143/69 H 100 12/25/19 00:14 12/25/19 00:14 12/25/19 08:01 12/25/19 08:00 12/25/19 08:01 Intake & Output 12/24/19 12/25/19 12/26/19 06:59 06:59 06:59 Weight 56.699 kg General appearance: PRESENT: no acute distress, cooperative Head exam: PRESENT: atraumatic Eye exam: ABSENT: scleral icterus Mouth exam: PRESENT: neck supple Neck exam: ABSENT: JVD Respiratory exam: PRESENT: clear to auscultation wendy, unlabored. ABSENT: crackles, wheezes Cardiovascular exam: PRESENT: RRR, +S1, +S2, systolic murmur. ABSENT: tachycardia GI/Abdominal exam: PRESENT: normal bowel sounds, soft. ABSENT: rebound, rigid, tenderness Neurological exam: PRESENT: alert, awake, oriented to person, oriented to place, oriented to time Psychiatric exam: ABSENT: agitated, anxious Focused psych exam: ABSENT: pressured speech Skin exam: ABSENT: cyanosis Results Laboratory Results: 12/25/19 00:30 12/25/19 00:30 12/25/19 12/25/19 12/25/19 00:30 00:30 00:30 WBC 8.9 RBC 4.50 Hgb 13.4 Hct 39.9 MCV 89 MCH 29.8 MCHC 33.6 RDW 13.6 Plt Count 283 Seg Neutrophils % 54.5 Sodium 133.1 L Potassium 3.7 Chloride 101 Carbon Dioxide 22 Anion Gap 10 BUN 22 H Creatinine 0.74 Est GFR ( Amer) > 60 Glucose 148 H Calcium 9.4 Magnesium 1.9 Total Bilirubin 0.5 AST 25 Alkaline Phosphatase 68 Total Protein 6.5 Albumin 4.1 TSH 12/25/19 00:30 WBC RBC Hgb Hct MCV MCH MCHC RDW Plt Count Seg Neutrophils % Sodium Potassium Chloride Carbon Dioxide Anion Gap BUN Creatinine Est GFR ( Amer) Glucose Calcium Magnesium Total Bilirubin AST Alkaline Phosphatase Total Protein Albumin TSH 1.11 12/25/19 12/25/19 12/25/19 00:30 04:10 05:35 Troponin I < 0.012 Cancelled 0.060 Impressions: Chest X-Ray 12/25/19 00:18 IMPRESSION: COPD. No acute cardiopulmonary process copyright 2011 [employer]- All Rights Reserved Assessment and Plan - Diagnosis (1) Atypical chest pain Is this a current diagnosis for this admission?: Yes Plan: Still having some chest heaviness but improved significantly EKG showing right bundle branch block but no recent EKG for comparison. No concerning ST or T wave changes. Mild increase in troponin on second measurement to 0.06--continue to trend Given patient's age, risk factors and persistence of chest heaviness even after palpitations resolved, patient will benefit from a stress test. I will schedule for Lexiscan stress test for tomorrow morning once ACS has been ruled out. (2) Paroxysmal atrial fibrillation Is this a current diagnosis for this admission?: Yes Plan: I suspect patient may have had an episode of rapid ventricular response which had resolved at this time patient presented to the hospital. EKG shows patient is now in sinus rhythm since arrival at the hospital. Continue flecainide and Eliquis. I will not make any adjustment to current dose given that patient states that her A. fib acts up only very rarely. TSH within normal limits. Monitor on telemetry. (3) Hypertension Qualifiers: Hypertension type: essential hypertension Qualified Code(s): I10 - Essential (primary) hypertension Is this a current diagnosis for this admission?: Yes Plan: Continue losartan, amlodipine and hydrochlorothiazide - Time Time Spent with patient: 35 or more minutes
[2019-12-25] MEDS: APIXABAN 2.5 MG TABLET PO SCH ×2 (09:36→18:27)
[2019-12-25] MEDS: LOSARTAN POTASSIUM 50 MG TABLET PO SCH (09:36)
[2019-12-25] MEDS: HYDROCHLOROTHIAZIDE 12.5 MG TABLET PO SCH (09:37)
[2019-12-25] MEDS: FLECAINIDE ACETATE 100 MG TABLET PO SCH ×2 (09:38→21:06)
[2019-12-25] MEDS: METFORMIN HCL 500 MG TABLET PO SCH (09:53)
[2019-12-25] MEDS ORDERED: TIMOLOL MALEATE 0.25% OPH SOLN 5 ML OU SCH (10:00)
[2019-12-25] MEDS: NITROGLYCERIN 0.4 MG/TAB 25 TAB/BOTTLE SL PRN ×2 (10:12→10:49)
--- NOTE | 2019-12-25 16:16 | EKG REPORT ---
SEVERITY:- ABNORMAL ECG - SINUS RHYTHM RIGHT BUNDLE BRANCH BLOCK : Confirmed by: Elisa Hardy MD 25-Dec-2019 16:15:55
--- NOTE | 2019-12-25 19:20 | Progress Note ---
Provider Note Provider Note: Patient informed nurse that she would llike to hold off on stress test for now. Will dc order.
[2019-12-25] MEDS ORDERED: CETIRIZINE 5 MG TABLET PO SCH (22:00)
[2019-12-25] MEDS ORDERED: AMLODIPINE BESYLATE 2.5 MG TABLET PO SCH (22:00)
[2019-12-25] MEDS ORDERED: ATORVASTATIN CALCIUM 20 MG TABLET PO SCH (22:00)
[2019-12-26 06:54] LABS: ANION GAP 10 (5-19); BLOOD UREA NITROGEN 18 mg/dL (7-20); CALCIUM 9.3 mg/dL (8.4-10.2); CARBON DIOXIDE 27 mmol/L (22-30); CHLORIDE 100 mmol/L (98-107); GLUCOSE 111 mg/dL (75-110)
--- NOTE | 2019-12-26 07:59 | EKG REPORT ---
SEVERITY:- ABNORMAL ECG - SINUS RHYTHM RIGHT BUNDLE BRANCH BLOCK : Confirmed by: Elisa Hardy MD 26-Dec-2019 07:59:02
[2019-12-26] MEDS: LOSARTAN POTASSIUM 50 MG TABLET PO SCH (09:46)
[2019-12-26] MEDS: METFORMIN HCL 500 MG TABLET PO SCH (09:46)
[2019-12-26] MEDS: APIXABAN 2.5 MG TABLET PO SCH (09:46)
[2019-12-26] MEDS: FLECAINIDE ACETATE 100 MG TABLET PO SCH (09:46)
[2019-12-26] MEDS: HYDROCHLOROTHIAZIDE 12.5 MG TABLET PO SCH (09:46)
--- NOTE | 2019-12-26 11:19 | PDOC DISCHARGE SUMMARY ---
Impression - Admit/DC Date/PCP Admission Date/Primary Care Provider: 12/25/19 08:37 SANCHEZ BOYD MD Discharge Date: 12/26/19 - Discharge Diagnosis (1) Atypical chest pain Is this a current diagnosis for this admission?: Yes (2) Chest pain Is this a current diagnosis for this admission?: No (3) Hypertension Is this a current diagnosis for this admission?: Yes (4) Palpitations Is this a current diagnosis for this admission?: Yes (5) Paroxysmal atrial fibrillation Is this a current diagnosis for this admission?: Yes - Additional Information Resuscitation Status: Full Code Discharge Diet: Cardiac Discharge Activity: Activity As Tolerated Referrals: SANCHEZ BOYD MD [Primary Care Provider] - 01/09/20 Home Medications: Amlodipine Besylate [Norvasc 2.5 mg Tablet] 2.5 mg PO DAILY 12/25/19 Apixaban [Eliquis 2.5 mg Tablet] 2.5 mg PO Q12 12/25/19 Atorvastatin Calcium [Lipitor 20 mg Tablet] 20 mg PO DAILY 12/25/19 Flecainide Acetate [Tambocor 100 mg Tablet] 25 mg PO Q12 12/25/19 Fluticasone Propionate [Flonase Nasal [place] 50 Mcg/[place] 16 gm] 2 sprays NASL DAILY 12/25/19 Levocetirizine Dihydrochloride [Xyzal] 5 mg PO QPM 12/25/19 Losartan/Hydrochlorothiazide [Losartan-Hctz 100-25 mg Tab] 1 each PO DAILY 12/25/19 Memantine HCl [Namenda] 5 mg PO Q12 12/25/19 Metformin HCl 500 mg PO DAILY 12/25/19 History of Present Illiness History of Present Illness: SHILO SINGH is a 84 year old female Patient was admitted with palpitations as well as chest pain. She was found to be in sinus rhythm in the emergency room I like she does have a history of atrial fibrillation. Please see admitting history and physical for full details Hospital Course Hospital Course: Patient was admitted to telemetry floor and she was monitored. She remained in sinus rhythm throughout her hospital stay. Her chest pain also resolved. Initially a stress test was being planned however after further discussions it appears that this plan was discarded and patient is to follow-up with her banking services clerk for further evaluation. She has remained hemodynamically stable. She has not had any episodes of atrial fibrillation. Chest pain has resolved. As such with no further intervention being planned patient has been discharged home for outpatient follow-up Physical Exam Vital Signs: Temp Pulse Resp BP Pulse Ox 98.3 F 65 16 124/54 L 98 12/26/19 07:40 12/26/19 07:40 12/26/19 07:40 12/26/19 07:40 12/26/19 07:40 Intake & Output 12/25/19 12/26/19 12/27/19 06:59 06:59 06:59 Intake Total 290 Output Total 0 Balance 290 Weight 56.699 kg 57.8 kg General appearance: PRESENT: no acute distress, well-developed, other - Comfortable elderly Head exam: PRESENT: atraumatic, normocephalic Eye exam: PRESENT: conjunctiva pink, EOMI, PERRLA. ABSENT: scleral icterus Ear exam: PRESENT: normal external ear exam Mouth exam: PRESENT: moist, tongue midline Neck exam: ABSENT: carotid bruit, JVD, lymphadenopathy, thyromegaly Respiratory exam: PRESENT: clear to auscultation wendy. ABSENT: rales, rhonchi, wheezes Cardiovascular exam: PRESENT: RRR. ABSENT: diastolic murmur, rubs, systolic murmur Pulses: PRESENT: normal dorsalis pedis pul Vascular exam: PRESENT: normal capillary refill GI/Abdominal exam: PRESENT: normal bowel sounds, soft. ABSENT: distended, guarding, mass, organolmegaly, rebound, tenderness Rectal exam: PRESENT: deferred Extremities exam: PRESENT: full ROM. ABSENT: calf tenderness, clubbing, pedal edema Neurological exam: PRESENT: alert, awake, oriented to person, oriented to place, oriented to time, oriented to situation, CN II-XII grossly intact. ABSENT: motor sensory deficit Psychiatric exam: PRESENT: appropriate affect, normal mood. ABSENT: homicidal ideation, suicidal ideation Skin exam: PRESENT: dry, intact, warm. ABSENT: cyanosis, rash Results Laboratory Results: WBC 8.9 10^3/uL (4.0-10.5) 12/25/19 00:30 RBC 4.50 10^6/uL (3.72-5.28) 12/25/19 00:30 Hgb 13.4 g/dL (12.0-15.5) 12/25/19 00:30 Hct 39.9 % (36.0-47.0) 12/25/19 00:30 MCV 89 fl (80-97) 12/25/19 00:30 MCH 29.8 pg (27.0-33.4) 12/25/19 00:30 MCHC 33.6 g/dL (32.0-36.0) 12/25/19 00:30 RDW 13.6 % (11.5-14.0) 12/25/19 00:30 Plt Count 283 10^3/uL (150-450) 12/25/19 00:30 Lymph % (Auto) 36.2 % (13-45) 12/25/19 00:30 [place]asper % (Auto) 7.8 % (3-13) 12/25/19 00:30 Eos % (Auto) 0.6 % (0-6) 12/25/19 00:30 Baso % (Auto) 0.9 % (0-2) 12/25/19 00:30 Absolute Neuts (auto) 4.8 10^3/uL (1.7-8.2) 12/25/19 00:30 Absolute Lymphs (auto) 3.2 10^3/uL (0.5-4.7) 12/25/19 00:30 Absolute Monos (auto) 0.7 10^3/uL (0.1-1.4) 12/25/19 00:30 Absolute Eos (auto) 0.1 10^3/uL (0.0-0.6) 12/25/19 00:30 Absolute Basos (auto) 0.1 10^3/uL (0.0-0.2) 12/25/19 00:30 Seg Neutrophils % 54.5 % (42-78) 12/25/19 00:30 PT 12.5 SEC (11.4-15.4) 12/25/19 00:30 INR 0.93 12/25/19 00:30 APTT 33.8 SEC (23.5-35.8) 12/25/19 00:30 Sodium 136.6 mmol/L (137-145) L 12/26/19 06:05 Potassium 4.0 mmol/L (3.6-5.0) 12/26/19 06:05 Chloride 100 mmol/L (98-107) 12/26/19 06:05 Carbon Dioxide 27 mmol/L (22-30) 12/26/19 06:05 Anion Gap 10 (5-19) 12/26/19 06:05 BUN 18 mg/dL (7-20) 12/26/19 06:05 Creatinine 0.77 mg/dL (0.52-1.25) 12/26/19 06:05 Est GFR ( Amer) > 60 (>60) 12/26/19 06:05 Est GFR (MDRD) Non-Af > 60 (>60) 12/26/19 06:05 Glucose 111 mg/dL (75-110) H 12/26/19 06:05 POC Glucose 116 mg/dL (70-110) H 12/25/19 09:46 Calcium 9.3 mg/dL (8.4-10.2) 12/26/19 06:05 Magnesium 1.9 mg/dL (1.6-2.3) 12/26/19 06:05 Total Bilirubin 0.5 mg/dL (0.2-1.3) 12/25/19 00:30 Direct Bilirubin 0.0 mg/dL (0.0-0.4) 12/25/19 00:30 Neonat Total Bilirubin Not Reportable 12/25/19 00:30 Neonat Direct Bilirubin Not Reportable 12/25/19 00:30 Neonat Indirect Bili Not Reportable 12/25/19 00:30 AST 25 U/L (14-36) 12/25/19 00:30 ALT 15 U/L (<35) 12/25/19 00:30 Alkaline Phosphatase 68 U/L (38-126) 12/25/19 00:30 Troponin I 0.043 ng/mL 12/25/19 13:45 Total Protein 6.5 g/dL (6.3-8.2) 12/25/19 00:30 Albumin 4.1 g/dL (3.5-5.0) 12/25/19 00:30 TSH 1.11 uIU/mL (0.47-4.68) 12/25/19 00:30 12/25/19 12/25/19 12/25/19 00:30 04:10 05:35 Troponin I < 0.012 Cancelled 0.060 12/25/19 12/25/19 09:45 13:45 Troponin I 0.051 0.043 Impressions: Chest X-Ray 12/25/19 00:18 IMPRESSION: COPD. No acute cardiopulmonary process copyright 2011 [employer]- All Rights Reserved Plan Time Spent: Less than 30 Minutes Stroke Is this a Stroke Patient?: No Acute Heart Failure - Is this a Heart Failure Patient?: No
[2019-12-26 11:31] VITALS: BP 126/56
== END 2019-12-26 12:36 | disposition home or self-care (01) ==
LOC: ER 00:02 → EH 08:37 → 4W 15:46
PROVIDERS: ADMIT Internal Medicine; ATTEND Internal Medicine
DX: R07.89 Other chest pain (principal); I48.0 Paroxysmal atrial fibrillation; I10 Essential (primary) hypertension; E11.9 Type 2 diabetes mellitus without complications; F03.90 Unspecified dementia, unspecified severity, without behavioral disturbance, psychotic disturbance, mood disturbance, and anxiety; E78.5 Hyperlipidemia, unspecified; J34.89 Other specified disorders of nose and nasal sinuses; J44.9 Chronic obstructive pulmonary disease, unspecified; I45.10 Unspecified right bundle-branch block; Z79.899 Other long term (current) drug therapy; Z79.84 Long term (current) use of oral hypoglycemic drugs; Z79.02 Long term (current) use of antithrombotics/antiplatelets; Z90.49 Acquired absence of other specified parts of digestive tract; Z87.891 Personal history of nicotine dependence; Z82.49 Family history of ischemic heart disease and other diseases of the circulatory system
CPT/HCPCS: 93005 ×2; 99285; 36415 ×2; 82962; 83735 ×2; 84443; 85025; 85610; 85730; 80048; 80053; 84484; 71046; 93010 ×2; G0378 ×3; A9270 ×4; J3490

== ENCOUNTER 2020-04-01 19:04 | Observation (INO) | payer MEDICARE ==
[2020-04-01 20:11] LABS: ABSOLUTE BASOPHILS # (AUTO) 0.1 10^3/uL (0.0-0.2); ABSOLUTE EOSINOPHILS # (AUTO) 0.1 10^3/uL (0.0-0.6); ABSOLUTE LYMPHOCYTES (AUTO) 2.6 10^3/uL (0.5-4.7); ABSOLUTE MONOCYTES (AUTO) 0.5 10^3/uL (0.1-1.4); ABSOLUTE NEUT (AUTO) 3.5 10^3/uL (1.7-8.2); BASOPHILS % (AUTO) 1.1 % (0-2); EOSINOPHILS % (AUTO) 0.8 % (0-6); HEMATOCRIT 36.4 % (36.0-47.0); HEMOGLOBIN 12.8 g/dL (12.0-15.5); LYMPHOCYTES % (AUTO) 38.8 % (13-45); MEAN CORPUSCULAR HGB CONC 35.2 g/dL (32.0-36.0); MEAN CORPUSCULAR VOLUME 88 fl (80-97); MONOCYTES % (AUTO) 8.1 % (3-13); PLATELET COUNT 282 10^3/uL (150-450); RED BLOOD COUNT 4.14 10^6/uL (3.72-5.28); RED CELL DISTRIBUTION WIDTH 14.7 % (11.5-14.0); SEGMENTED NEUTROPHILS % (AUTO) 51.2 % (42-78); TOTAL CELLS COUNTED % (AUTO) 100 %; WHITE BLOOD COUNT 6.8 10^3/uL (4.0-10.5)
--- NOTE | 2020-04-01 20:20 | RADIOLOGY REPORT (SQ) ---
XR CHEST 1 VIEW EXAM DATE: 04/01/2020 7:11 PM CDT HISTORY: Shortness of breath. COMPARISON: 01/19/2019 FINDINGS: The heart size is within normal limits. There is no pulmonary vascular congestion. No consolidation, pleural effusion, or pneumothorax is seen. IMPRESSION: No evidence of acute cardiopulmonary disease.
[2020-04-01 20:31] LABS: ALBUMIN 3.9 g/dL (3.5-5.0); ALKALINE PHOSPHATASE 74 U/L (38-126); ANION GAP 5 (5-19); ASPARTATE AMINO TRANSFERASE 23 U/L (14-36); BILIRUBIN,TOTAL 0.5 mg/dL (0.2-1.3); BLOOD UREA NITROGEN 10 mg/dL (7-20); CALCIUM 9.5 mg/dL (8.4-10.2); CARBON DIOXIDE 31 mmol/L (22-30); CHLORIDE 97 mmol/L (98-107); GLUCOSE 96 mg/dL (75-110); POTASSIUM 3.3 mmol/L (3.6-5.0); TOTAL PROTEIN 6.3 g/dL (6.3-8.2)
--- NOTE | 2020-04-01 21:24 | ER Document Report ---
ED Cardiac - General Chief Complaint: Chest Pressure Stated Complaint: COUGH Time Seen by Provider: 04/01/20 19:17 Primary Care Provider: SANCHEZ BOYD MD [Primary Care Provider] - Follow up as needed Mode of Arrival: Ambulatory TRAVEL OUTSIDE OF THE [place] IN LAST 30 DAYS: No - HPI Notes: Patient presents with a pain in the center of her chest. It is been present for several days but worse today. She states she does not know anything makes it be tter or worse. It does appear to be random in onset. It does not have any significant radiation. She states she also feels short of breath with it. She denies any new cough fevers or congestion. No known COVID exposures. She states she has no history of congestive heart failure. She has no past history of coronary artery disease. She has never had a heart attack or heart catheterization. She states she did have a stress test "many years ago". She states this test was normal. She states she is been told by her accounts payable supervisor that she cannot have any further stress test. - Related Data Allergies/Adverse Reactions: codeine Allergy (Verified 04/01/20 20:41) meperidine [From Demerol] Allergy (Verified 04/01/20 20:41) Past Medical History - General Information source: Patient - Social History Smoking Status: Former Smoker Frequency of alcohol use: None Drug Abuse: None Family History: Hypertension, Other - AFib in sister Patient has homicidal ideation: No - Past Medical History Cardiac Medical History: Reports: Hx Atrial Fibrillation, Hx Hypertension Endocrine Medical History: Reports: Hx Diabetes Mellitus Type 2 - Takes only metformin Renal/ Medical History: Denies: Hx Peritoneal Dialysis Past Surgical History: Reports: Hx Appendectomy, Hx Cholecystectomy, Hx Hysterectomy Review of Systems - Review of Systems Constitutional: denies: Chills, Fever Cardiovascular: Chest pain. denies: Palpitations Respiratory: Short of breath. denies: Cough -: Yes All other systems reviewed and negative Physical Exam - Vital signs Vitals: Resp Pulse Ox 13 96 04/01/20 19:18 04/01/20 19:18 Interpretation: Normal - General General appearance: Appears well, Alert - HEENT Head: Normocephalic, Atraumatic Eyes: Normal Pupils: PERRL - Respiratory Respiratory status: No respiratory distress Chest status: Nontender Breath sounds: Normal Chest palpation: Normal - Cardiovascular Rhythm: Regular Heart sounds: Normal auscultation Murmur: No - Abdominal Inspection: Normal Distension: No distension Bowel sounds: Normal Tenderness: Nontender Organomegaly: No organomegaly - Back Back: Normal, Nontender - Extremities General upper extremity: Normal inspection, Nontender, Normal color, Normal ROM, Normal temperature General lower extremity: Normal inspection, Nontender, Normal color, Normal ROM, Normal temperature, Normal weight bearing. No: Ed's sign - Neurological Neuro grossly intact: Yes Cognition: Normal Orientation: AAOx4 [place] Coma Scale Eye Opening: Spontaneous [place] Coma Scale Verbal: Oriented [place] Coma Scale Motor: Obeys Commands [place] Coma Scale Total: 15 Speech: Normal Motor strength normal: LUE, RUE, LLE, RLE Sensory: Normal - Psychological Associated symptoms: Normal affect, Normal mood - Skin Skin Temperature: Warm Skin Moisture: Dry Skin Color: Normal Course - Re-evaluation Re-evalutation: 04/01/20 21:38 Patient presents with chest pain and shortness of breath. No evidence of infection. A CTA is pending as well. However patient is already on Eliquis. I will turn the patient over to Dr. Mosqueda. Dr. Soriano will follow up on CTA and repeat troponin. Patient will be admitted for observation of chest pain. Her blood pressure for the last several readings is now been elevated and I have prescribed her her night blood pressure medication. EKG shows no new changes. - Vital Signs Vital signs: Temp Pulse Resp BP Pulse Ox 98.5 F 15 175/86 H 97 04/01/20 20:41 04/01/20 20:01 04/01/20 20:01 04/01/20 20:01 - Laboratory Result Diagrams: 04/01/20 19:57 04/01/20 19:57 Laboratory results interpreted by me: 04/01/20 04/01/20 19:57 19:57 RDW 14.7 H Sodium 133.1 L Potassium 3.3 L Chloride 97 L Carbon Dioxide 31 H - Diagnostic Test Radiology reviewed: Image reviewed, Reports reviewed - EKG Interpretation by Ia EKG shows normal: Sinus rhythm Rate: Normal Rhythm: NSR - 62 [place]/QRS: RBBB Discharge - Discharge Clinical Impression: Chest pain Qualifiers: Chest pain type: unspecified Qualified Code(s): R07.9 - Chest pain, unspecified Condition: Stable Disposition: ADMITTED OBSERVATION Admitting Provider: Matt (Hospitalist) Unit Admitted: Telemetry Referrals: SANCHEZ BOYD MD [Primary Care Provider] - Follow up as needed
--- NOTE | 2020-04-01 21:31 | RADIOLOGY REPORT (SQ) ---
EXAM DESCRIPTION: CT CHEST ANGIOGRAPHY WITHOUT THEN WITH IV CONTRAST COMPLETED DATE/TME: 04/01/2020 19:46 CLINICAL HISTORY: 84 years Female sob COMPARISON: 05/31/2018 TECHNIQUE: Contiguous axial images were obtained through the chest during the infusion of IV contrast. Reformatted images obtained. MIP reformatted images obtained. This exam was performed according to our department optimization program which includes automated exposure control, adjustment of the mA and/or kv according to patient size and/or use of iterative reconstruction technique. FINDINGS: No evidence of pulmonary embolus. No evidence aortic dissection or rupture. No pericardial or pleural effusion. Calcification in aorta and in the coronary arteries. Small amount of dependent atelectasis. No consolidation or evidence of pneumothorax. IMPRESSION:No evidence of pulmonary embolus No acute process in the chest
[2020-04-01] MEDS ORDERED: MORPHINE SULFATE 10 MG/ML INJ IV ONE (21:32)
[2020-04-01 21:37] LABS: APPEARANCE,URINE CLEAR; BILIRUBIN,URINE NEGATIVE (NEGATIVE); COLOR,URINE AMBER; GLUCOSE, URINE NEGATIVE (NEGATIVE); KETONES,URINE NEGATIVE (NEGATIVE); NITRITE,URINE NEGATIVE (NEGATIVE); PROTEIN,URINE NEGATIVE (NEGATIVE); URINE SPECIFIC GRAVITY 1.005; UROBILINOGEN,URINE NEGATIVE mg/dL (<2.0)
[2020-04-01 21:38] LABS: ADD MANUAL MICROSCOPIC YES; LEUKOCYTE ESTERASE,URINE NEGATIVE (NEGATIVE)
[2020-04-01] MEDS ORDERED: AMLODIPINE BESYLATE 2.5 MG TABLET PO ONE (21:38)
[2020-04-01] MEDS ORDERED: MAGNESIUM HYDROXIDE SUSP 30 ML UDCUP PO PRN (21:57)
[2020-04-01] MEDS ORDERED: MAG HYDROX/AL HYDROX/SIMETH SUSP 30 ML UDCUP PO PRN (21:57)
[2020-04-01] MEDS ORDERED: DEXTROSE 40% GEL 15 GM TUBE PO PRN ×2 (22:01)
[2020-04-01] MEDS ORDERED: GLUCAGON,HUMAN RECOMB 1 MG INJ IM PRN (22:01)
[2020-04-01] MEDS ORDERED: DEXTROSE 50%-WATER 25 GM/50 ML DISP.SYRIN IV PRN ×2 (22:01)
[2020-04-01] MEDS ORDERED: PROMETHAZINE HCL INJ 25 MG/1 ML VIAL IV PRN (22:04)
[2020-04-01] MEDS ORDERED: MORPHINE SULFATE 10 MG/ML INJ IV PRN ×3 (22:09)
[2020-04-01] MEDS ORDERED: ACETAMINOPHEN 325 MG TABLET PO PRN (22:09)
[2020-04-01] MEDS ORDERED: LORAZEPAM INJ 2 MG/1 ML VIAL IV PRN (22:09)
[2020-04-01] MEDS ORDERED: HYDRALAZINE HCL INJ/PF 20 MG/1 ML SDV IV PRN (22:09)
[2020-04-01] MEDS ORDERED: GUAIFENESIN SYRP 200 MG/10 ML UDC PO PRN (22:09)
[2020-04-01] MEDS ORDERED: FLECAINIDE ACETATE 100 MG TABLET PO SCH (22:15)
--- NOTE | 2020-04-02 00:21 | PDOC H&P ---
History of Present Illness Admission Date/PCP: 04/02/2020 21:40 SANCHEZ BOYD MD Patient complains of: Chest pain History of Present Illness: SHILO SINGH is a 84 year old female who presented to the emergency room with a 2-day history of chest pain. She admits a progressively worsening constant upper substernal chest pressure without radiation, accompanied by a minimal nonproductive cough and associated with moderate dyspnea. The pain became severe on the evening of admission and is worsened by breathing. She admits prior similar episodes related to her paroxysmal atrial fibrillation. She denies other associated or accompanying signs or symptoms. She has not identified any additional aggravating or ameliorating factors for her chest pain. In the emergency room she was found to have cardiac enzymes and an EKG that revealed no evidence of myocardial ischemia or injury. She was subsequently admitted to observation status for further evaluation and treatment. Past Medical History Cardiac Medical History: Reports: Atrial Fibrillation - Paroxysmal, Hyperlipidema, Hypertension Denies: Congestive Heart Failure, Coronary Artery Disease, DVT, Myocardial Infarction, Peripheral Vascular Disease, Pulmonary Embolism Pulmonary Medical History: Denies: Asthma, Chronic Obstructive Pulmonary Disease (COPD) EENT Medical History: Denies: Cataracts, Ears - Hearing aids Neurological Medical History: Denies: Hemorrhagic CVA, Ischemic CVA, Seizures Endocrine Medical History: Reports: Diabetes Mellitus Type 2 Denies: Diabetes Mellitus Type 1, Hyperthyroidism, Hypothyroidism Renal/ Medical History: Denies: Chronic Kidney Disease, Nephrolithiasis Malignancy Medical History: Reports: None GI Medical History: Denies: Cirrhosis, Crohn's Disease, Hepatitis, Peptic Ulcer Disease, Ulcerative Colitis Musculoskeltal Medical History: Denies: Arthritis, Fibromyalgia Skin Medical History: Denies: Eczema, Psoriasis Psychiatric Medical History: Denies: Alcohol Dependency, Substance Abuse, Tobacco Dependency Traumatic Medical History: Reports: None Hematology: Denies: Anemia, Bleeding Tendencies Infectious Medical History: Reports: None Past Surgical History Past Surgical History: Reports: Appendectomy, Cholecystectomy, Hysterectomy Social History Information Source: Patient Lives with: Family Smoking Status: Former Smoker Electronic Cigarette use?: No Frequency of Alcohol Use: None Hx Recreational Drug Use: No Drugs: None Hx Prescription Drug Abuse: No - Advance Directive Resuscitation Status: Full Code Surrogate healthcare decision maker:: Daysi Radford Family History Family History: Hypertension, Other - A-Fib in sister Parental Family History Reviewed: Yes Children Family History Reviewed: No Sibling(s) Family History Reviewed.: Yes Medication/Allergy Home Medications: Amlodipine Besylate [Norvasc 2.5 mg Tablet] 2.5 mg PO DAILY 12/25/19 Apixaban [Eliquis 2.5 mg Tablet] 2.5 mg PO Q12 12/25/19 Atorvastatin Calcium [Lipitor 20 mg Tablet] 20 mg PO DAILY 12/25/19 Flecainide Acetate [Tambocor 100 mg Tablet] 25 mg PO Q12 12/25/19 Fluticasone Propionate [Flonase Nasal [place] 50 Mcg/[place] 16 gm] 2 sprays NASL DAILY 12/25/19 Levocetirizine Dihydrochloride [Xyzal] 5 mg PO QPM 12/25/19 Losartan/Hydrochlorothiazide [Losartan-Hctz 100-25 mg Tab] 1 each PO DAILY 12/25/19 Memantine HCl [Namenda] 5 mg PO Q12 12/25/19 Metformin HCl 500 mg PO DAILY 12/25/19 Sertraline HCl 25 mg PO DAILY 04/01/20 Allergies/Adverse Reactions: codeine Allergy (Verified 04/01/20 20:41) meperidine [From Demerol] Allergy (Verified 04/01/20 20:41) Review of Systems Constitutional: ABSENT: chills, fever(s) Eyes: ABSENT: visual disturbances, other - Eye pain Ears: ABSENT: hearing changes, other - Ear pain Nose, Mouth, and Throat: ABSENT: headache(s), sore throat Cardiovascular: PRESENT: as per HPI, chest pain, dyspnea on exertion. ABSENT: edema, orthropnea, palpitations Respiratory: PRESENT: as per HPI, cough, dyspnea. ABSENT: hemoptysis, sputum Gastrointestinal: ABSENT: abdominal pain, constipation, diarrhea, nausea, vomiting Genitourinary: ABSENT: dysuria, hematuria Musculoskeletal: ABSENT: back pain, joint swelling, muscle weakness Integumentary: ABSENT: pruritus, rash Neurological: ABSENT: confusion, convulsions, focal weakness, memory loss, syncope Psychiatric: ABSENT: anxiety, depression Endocrine: ABSENT: cold intolerance, heat intolerance, polydipsia, polyphagia, polyuria Hematologic/Lymphatic: ABSENT: easy bleeding, easy bruising Allergic/Immunologic: ABSENT: seasonal rhinorrhea Physical Exam Vital Signs: Temp Pulse Resp BP Pulse Ox 98.5 F 15 175/86 H 97 04/01/20 20:41 04/01/20 20:01 04/01/20 20:01 04/01/20 20:01 General appearance: PRESENT: no acute distress, cooperative Head exam: PRESENT: atraumatic, normocephalic Eye exam: PRESENT: conjunctiva pink. ABSENT: conjunctival injection, scleral icterus Ear exam: PRESENT: normal external ear exam. ABSENT: bleeding, drainage Mouth exam: PRESENT: dry mucosa, neck supple Neck exam: ABSENT: thyromegaly, tracheal deviation Respiratory exam: PRESENT: clear to auscultation wendy, symmetrical, unlabored Cardiovascular exam: PRESENT: RRR. ABSENT: clicks, gallop, rubs Pulses: PRESENT: normal radial pulses, normal dorsalis pedis pul Vascular exam: PRESENT: normal capillary refill. ABSENT: pallor GI/Abdominal exam: PRESENT: normal bowel sounds, soft Rectal exam: PRESENT: deferred Extremities exam: ABSENT: joint swelling, pedal edema Musculoskeletal exam: ABSENT: deformity, dislocation Neurological exam: PRESENT: alert, oriented to person, oriented to place, ana maria ented to time, oriented to situation, CN II-XII grossly intact. ABSENT: motor sensory deficit Psychiatric exam: PRESENT: appropriate affect, normal mood Skin exam: PRESENT: dry, intact, warm. ABSENT: jaundice, rash, urticaria Results Laboratory Results: 04/01/20 19:57 04/01/20 19:57 04/01/20 04/01/20 04/01/20 19:57 19:57 20:53 WBC 6.8 RBC 4.14 Hgb 12.8 Hct 36.4 MCV 88 MCH 31.0 MCHC 35.2 RDW 14.7 H Plt Count 282 Seg Neutrophils % 51.2 Sodium 133.1 L Potassium 3.3 L Chloride 97 L Carbon Dioxide 31 H Anion Gap 5 BUN 10 Creatinine 0.58 Est GFR ( Amer) > 60 Glucose 96 Calcium 9.5 Total Bilirubin 0.5 AST 23 Alkaline Phosphatase 74 Total Protein 6.3 Albumin 3.9 Urine Color MARCIA Urine Appearance CLEAR Urine pH 8.0 Ur Specific Elizabeth 1.005 Urine Protein NEGATIVE Urine Glucose (UA) NEGATIVE Urine Ketones NEGATIVE Urine Blood NEGATIVE Urine Nitrite NEGATIVE Ur Leukocyte Esterase NEGATIVE Ur Squamous Epith Cells RARE 04/01/20 19:57 Troponin I < 0.012 Impressions: Chest X-Ray 04/01/20 19:11 IMPRESSION: No evidence of acute cardiopulmonary disease. Chest/Abdomen CTA 04/01/20 19:46 IMPRESSION:No evidence of pulmonary embolus No acute process in the chest Assessment and Plan - Diagnosis (1) Chest pain Qualifiers: Chest pain type: unspecified Qualified Code(s): R07.9 - Chest pain, unspecified Is this a current diagnosis for this admission?: Yes (2) Diabetes mellitus type 2 in nonobese Is this a current diagnosis for this admission?: Yes (3) Hyperlipidemia Qualifiers: Hyperlipidemia type: unspecified Qualified Code(s): E78.5 - Hyperlipidemia, unspecified Is this a current diagnosis for this admission?: Yes (4) Paroxysmal atrial fibrillation Is this a current diagnosis for this admission?: Yes (5) Hypertension Qualifiers: Hypertension type: essential hypertension Qualified Code(s): I10 - Essential (primary) hypertension Is this a current diagnosis for this admission?: Yes - Plan Summary Summary: Patient is admitted on observation status to telemetry, where she will receive routine supportive and symptomatic cares. Serial cardiac enzymes will be obtained. Morphine sulfate 2 to 4 mg IV every 2 hours will be used to treat chest pain as needed. Ativan 1 mg IV every 4 hours will be used to treat anxiety or restlessness as needed. Patient will be continued on her usual medications as appropriate and available per hospital formulary, when her medication list has been verified and reconciled. A CBC, magnesium level and metabolic profile will be obtained in the morning. Further diagnostic testing will be obtained as appropriate. - Time Time Spent with patient: 15-24 minutes Medications reviewed and adjusted accordingly: Yes Anticipated discharge: Home Within: within 24 hours - Inpatient Certification Based on my medical assessment, after consideration of the patient's c omorbidities, presenting symptoms, or acuity I expect that the services needed warrant INPATIENT care.: No I certify that my determination is in accordance with my understanding of Medicare's requirements for reasonable and necessary INPATIENT services [42 CFR 412.3e].: No
[2020-04-02] MEDS: INSULIN REG, HUMAN 100 UNIT/ML 3 ML VIAL (PYX) SUBCUT SCH ×3 (01:17→11:55)
[2020-04-02] MEDS: FAMOTIDINE 20 MG TABLET PO SCH ×2 (01:26→09:44)
[2020-04-02] MEDS: APIXABAN 2.5 MG TABLET PO SCH ×2 (01:31→09:50)
[2020-04-02] MEDS: NITROGLYCERIN 2% OINTMENT 1 GM PACKET ONE ×2 (02:00→02:25)
[2020-04-02 02:31] LABS: HEMATOCRIT 36.6 % (36.0-47.0); HEMOGLOBIN 12.9 g/dL (12.0-15.5); MEAN CORPUSCULAR HEMOGLOBIN 30.9 pg (27.0-33.4); MEAN CORPUSCULAR HGB CONC 35.3 g/dL (32.0-36.0); MEAN CORPUSCULAR VOLUME 88 fl (80-97); PLATELET COUNT 264 10^3/uL (150-450); RED BLOOD COUNT 4.18 10^6/uL (3.72-5.28); RED CELL DISTRIBUTION WIDTH 14.6 % (11.5-14.0); WHITE BLOOD COUNT 10.5 10^3/uL (4.0-10.5)
[2020-04-02 02:45] LABS: ANION GAP 9 (5-19); BLOOD UREA NITROGEN 8 mg/dL (7-20); CALCIUM 9.5 mg/dL (8.4-10.2); CARBON DIOXIDE 24 mmol/L (22-30); CHLORIDE 101 mmol/L (98-107); CREATINE KINASE 28 U/L (30-135); GLUCOSE 153 mg/dL (75-110); POTASSIUM 3.3 mmol/L (3.6-5.0)
[2020-04-02 02:56] LABS: CREATINE KINASE MB 0.68 ng/mL (<4.55)
[2020-04-02 03:00] LABS: TROPONIN I < 0.012 ng/mL
[2020-04-02] MEDS: POTASSI CL 20 MEQ/50 ML RIDER 20 MEQ/50 ML RTUPB IV SCH ×2 (03:25→05:42)
[2020-04-02] MEDS ORDERED: NITROGLYCERIN 2% OINTMENT 1 GM PACKET TP SCH (06:00)
[2020-04-02] MEDS ORDERED: POTASSIUM CHLORIDE 10 MEQ TABLET.ER PO SCH (08:00)
--- NOTE | 2020-04-02 08:30 | EKG REPORT ---
SEVERITY:- ABNORMAL ECG - SINUS RHYTHM RIGHT BUNDLE BRANCH BLOCK : Confirmed by: Alma Ruvalcaba 02-Apr-2020 08:29:23
--- NOTE | 2020-04-02 08:32 | EKG REPORT ---
SEVERITY:- ABNORMAL ECG - SINUS RHYTHM RIGHT BUNDLE BRANCH BLOCK : Confirmed by: Alma Ruvalcaba 02-Apr-2020 08:32:10
[2020-04-02 09:00] LABS: TROPONIN I < 0.012 ng/mL
[2020-04-02] MEDS ORDERED: AMLODIPINE BESYLATE 2.5 MG TABLET PO SCH (10:00)
[2020-04-02] MEDS ORDERED: (PENDING PHARMACY ID) (Sertraline Hcl [Sertraline Hcl] 25 MG) PO SCH (10:00)
[2020-04-02] MEDS ORDERED: (PENDING PHARMACY ID) (Memantine Hcl [Namenda] 5 MG) PO SCH (10:00)
[2020-04-02] MEDS ORDERED: FLUTICASONE NASAL SPRAY 50 MCG/SPRY 120 SPRAY/16 GM NASL SCH (10:00)
[2020-04-02] MEDS ORDERED: MEMANTINE HCL 10 MG TABLET PO SCH ×2 (10:00)
[2020-04-02] MEDS ORDERED: HYDROCHLOROTHIAZIDE 25 MG TABLET PO SCH ×2 (10:00)
[2020-04-02] MEDS ORDERED: FLECAINIDE ACETATE 100 MG TABLET PO SCH (10:00)
[2020-04-02] MEDS ORDERED: ATORVASTATIN CALCIUM 20 MG TABLET PO SCH (10:00)
[2020-04-02] MEDS ORDERED: METFORMIN HCL 500 MG TABLET PO SCH (10:00)
[2020-04-02] MEDS ORDERED: DOCUSATE SODIUM 100 MG CAPSULE PO SCH (10:00)
[2020-04-02] MEDS ORDERED: (PENDING PHARMACY ID) (Losartan/Hydrochlorothiazide [Losartan-Hctz 100-25 Mg Tab] 1 EACH) PO SCH (10:00)
[2020-04-02] MEDS ORDERED: CETIRIZINE 10 MG TABLET PO SCH (10:00)
[2020-04-02] MEDS ORDERED: SERTRALINE HCL 50 MG TABLET PO SCH ×2 (10:00)
[2020-04-02] MEDS ORDERED: LOSARTAN POTASSIUM 50 MG TABLET PO SCH ×2 (10:00)
--- NOTE | 2020-04-02 10:16 | PDOC DISCHARGE SUMMARY ---
Impression - Admit/DC Date/PCP Admission Date/Primary Care Provider: 04/01/20 21:45 SANCHEZ BOYD MD Discharge Date: 04/02/20 - Discharge Diagnosis (1) Chest pain, musculoskeletal Is this a current diagnosis for this admission?: Yes (2) Diabetes mellitus type 2 in nonobese Is this a current diagnosis for this admission?: Yes (3) Hyperlipidemia Is this a current diagnosis for this admission?: Yes (4) Hypertension Is this a current diagnosis for this admission?: Yes (5) Paroxysmal atrial fibrillation Is this a current diagnosis for this admission?: Yes - Assessment Summary: Patient is admitted on observation status to telemetry, where she will receive routine supportive and symptomatic cares. Serial cardiac enzymes will be obtained. Morphine sulfate 2 to 4 mg IV every 2 hours will be used to treat chest pain as needed. Ativan 1 mg IV every 4 hours will be used to treat anxiety or restlessness as needed. Patient will be continued on her usual medications as appropriate and available per hospital formulary, when her medication list has been verified and reconciled. A CBC, magnesium level and metabolic profile will be obtained in the morning. Further diagnostic testing will be obtained as appropriate. - Additional Information Resuscitation Status: Full Code Discharge Diet: Cardiac, Diabetic Discharge Activity: Activity As Tolerated Referrals: SANCHEZ BOYD MD [Primary Care Provider] - Follow up as needed Prescriptions: Potassium Chloride [Klor-Con 10 Meq Tablet ER] 20 meq PO DAILY #14 tablet.er Home Medications: Amlodipine Besylate [Norvasc 2.5 mg Tablet] 2.5 mg PO DAILY 12/25/19 Apixaban [Eliquis 2.5 mg Tablet] 2.5 mg PO Q12 12/25/19 Atorvastatin Calcium [Lipitor 20 mg Tablet] 20 mg PO DAILY 12/25/19 Fluticasone Propionate [Flonase Nasal [place] 50 Mcg/[place] 16 gm] 2 sprays NASL DAILY 12/25/19 Levocetirizine Dihydrochloride [Xyzal] 5 mg PO QPM 12/25/19 Losartan/Hydrochlorothiazide [Losartan-Hctz 100-25 mg Tab] 1 each PO DAILY 12/25/19 Memantine HCl [Namenda] 5 mg PO Q12 12/25/19 Metformin HCl 500 mg PO DAILY 12/25/19 Sertraline HCl 25 mg PO DAILY 04/01/20 Acetaminophen [Tylenol 325 mg Tablet] 650 mg PO Q4HP PRN tablet 04/02/20 Flecainide Acetate [Tambocor 100 mg Tablet] 25 mg PO Q12 tablet 04/02/20 Potassium Chloride [Klor-Con 10 Meq Tablet ER] 20 meq PO DAILY #14 tablet.er 04/02/20 History of Present Illiness History of Present Illness: SHILO SINGH is a 84 year old female who presented to the emergency room with a 2-day history of chest pain. She admits a progressively worsening constant upper substernal chest pressure without radiation, accompanied by a minimal nonproductive cough and associated with moderate dyspnea. The pain became severe on the evening of admission and is worsened by breathing. She admits prior similar episodes related to her paroxysmal atrial fibrillation. She denies other associated or accompanying signs or symptoms. She has not identified any additional aggravating or ameliorating factors for her chest pain. In the emergency room she was found to have cardiac enzymes and an EKG that revealed no evidence of myocardial ischemia or injury. She was subsequently admitted to observation status for further evaluation and treatment. Hospital Course Hospital Course: Patient was admitted for observation to telemetry. She continues to be in sinus rhythm. Serial EKG and troponin are negative. Pain has improved. Pain was reproducible on palpation. Clearly musculoskeletal in nature. Discussed with the patient and her granddaughter who is her caregiver. She sees Dr. Gastelum for A. fib. She will follow-up with him after discharge. Physical Exam Vital Signs: Temp Pulse Resp BP Pulse Ox 98.1 F 64 16 137/58 H 100 04/02/20 07:21 04/02/20 07:21 04/02/20 07:21 04/02/20 07:21 04/02/20 07:21 Intake & Output 04/01/20 04/02/20 04/03/20 06:59 06:59 06:59 Intake Total 50 50 Balance 50 50 Weight 125 lb 7.088 oz General appearance: PRESENT: no acute distress, cooperative Head exam: PRESENT: atraumatic, normocephalic Eye exam: PRESENT: EOMI, PERRLA Mouth exam: PRESENT: neck supple Neck exam: ABSENT: meningismus Respiratory exam: PRESENT: clear to auscultation wendy Cardiovascular exam: PRESENT: RRR GI/Abdominal exam: PRESENT: normal bowel sounds Neurological exam: PRESENT: alert, awake, oriented to person, oriented to place, oriented to time, oriented to situation Psychiatric exam: PRESENT: appropriate affect, normal mood Results Laboratory Results: WBC 10.5 10^3/uL (4.0-10.5) 04/02/20 02:14 RBC 4.18 10^6/uL (3.72-5.28) 04/02/20 02:14 Hgb 12.9 g/dL (12.0-15.5) 04/02/20 02:14 Hct 36.6 % (36.0-47.0) 04/02/20 02:14 MCV 88 fl (80-97) 04/02/20 02:14 MCH 30.9 pg (27.0-33.4) 04/02/20 02:14 MCHC 35.3 g/dL (32.0-36.0) 04/02/20 02:14 RDW 14.6 % (11.5-14.0) H 04/02/20 02:14 Plt Count 264 10^3/uL (150-450) 04/02/20 02:14 Lymph % (Auto) 38.8 % (13-45) 04/01/20 19:57 [place] % (Auto) 8.1 % (3-13) 04/01/20 19:57 Eos % (Auto) 0.8 % (0-6) 04/01/20 19:57 Baso % (Auto) 1.1 % (0-2) 04/01/20 19:57 Absolute Neuts (auto) 3.5 10^3/uL (1.7-8.2) 04/01/20 19:57 Absolute Lymphs (auto) 2.6 10^3/uL (0.5-4.7) 04/01/20 19:57 Absolute Monos (auto) 0.5 10^3/uL (0.1-1.4) 04/01/20 19:57 Absolute Eos (auto) 0.1 10^3/uL (0.0-0.6) 04/01/20 19:57 Absolute Basos (auto) 0.1 10^3/uL (0.0-0.2) 04/01/20 19:57 Seg Neutrophils % 51.2 % (42-78) 04/01/20 19:57 Sodium 134.0 mmol/L (137-145) L 04/02/20 02:14 Potassium 3.3 mmol/L (3.6-5.0) L 04/02/20 02:14 Chloride 101 mmol/L (98-107) 04/02/20 02:14 Carbon Dioxide 24 mmol/L (22-30) 04/02/20 02:14 Anion Gap 9 (5-19) 04/02/20 02:14 BUN 8 mg/dL (7-20) 04/02/20 02:14 Creatinine 0.56 mg/dL (0.52-1.25) 04/02/20 02:14 Est GFR ( Amer) > 60 (>60) 04/02/20 02:14 Est GFR (MDRD) Non-Af > 60 (>60) 04/02/20 02:14 Glucose 153 mg/dL (75-110) H 04/02/20 02:14 POC Glucose 141 mg/dL (70-110) H 04/02/20 07:20 Hemoglobin A1c % 6.4 % (4.7-6.0) H 04/02/20 02:14 Calcium 9.5 mg/dL (8.4-10.2) 04/02/20 02:14 Magnesium 1.5 mg/dL (1.6-2.3) L 04/02/20 02:14 Total Bilirubin 0.5 mg/dL (0.2-1.3) 04/01/20 19:57 Direct Bilirubin 0.0 mg/dL (0.0-0.4) 04/01/20 19:57 Neonat Total Bilirubin Not Reportable 04/01/20 19:57 Neonat Direct Bilirubin Not Reportable 04/01/20 19:57 Neonat Indirect Bili Not Reportable 04/01/20 19:57 AST 23 U/L (14-36) 04/01/20 19:57 ALT 14 U/L (<35) 04/01/20 19:57 Alkaline Phosphatase 74 U/L (38-126) 04/01/20 19:57 Creatine Kinase 23 U/L (30-135) L 04/02/20 08:04 CK-MB (CK-2) 0.70 ng/mL (<4.55) 04/02/20 08:04 Troponin I < 0.012 ng/mL 04/02/20 08:04 Total Protein 6.3 g/dL (6.3-8.2) 04/01/20 19:57 Albumin 3.9 g/dL (3.5-5.0) 04/01/20 19:57 Urine Color MARCIA 04/01/20 20:53 Urine Appearance CLEAR 04/01/20 20:53 Urine pH 8.0 (5.0-9.0) 04/01/20 20:53 Ur Specific [place] 1.005 04/01/20 20:53 Urine Protein NEGATIVE mg/dL (NEGATIVE) 04/01/20 20:53 Urine Glucose (UA) NEGATIVE mg/dL (NEGATIVE) 04/01/20 20:53 Urine Ketones NEGATIVE mg/dL (NEGATIVE) 04/01/20 20:53 Urine Blood NEGATIVE (NEGATIVE) 04/01/20 20:53 Urine Nitrite NEGATIVE (NEGATIVE) 04/01/20 20:53 Urine Bilirubin NEGATIVE (NEGATIVE) 04/01/20 20:53 Urine Urobilinogen NEGATIVE mg/dL (<2.0) 04/01/20 20:53 Ur Leukocyte Esterase NEGATIVE (NEGATIVE) 04/01/20 20:53 Ur Squamous Epith Cells RARE /HPF 04/01/20 20:53 Urine Ascorbic Acid NEGATIVE (NEGATIVE) 04/01/20 20:53 04/01/20 04/02/20 04/02/20 19:57 02:14 08:04 CK-MB (CK-2) 0.68 0.70 Troponin I < 0.012 < 0.012 < 0.012 Impressions: Chest X-Ray 04/01/20 19:11 IMPRESSION: No evidence of acute cardiopulmonary disease. Chest/Abdomen CTA 04/01/20 19:46 IMPRESSION:No evidence of pulmonary embolus No acute process in the chest Plan Time Spent: Less than 30 Minutes - 20 min Stroke Is this a Stroke Patient?: No Acute Heart Failure - Is this a Heart Failure Patient?: No
[2020-04-02 10:59] VITALS: BP 142/53
[2020-04-02] MEDS ORDERED: CETIRIZINE 5 MG TABLET PO SCH (18:00)
== END 2020-04-02 12:57 | disposition home or self-care (01) ==
LOC: ER 19:04 → EH 21:45 → 4S 23:13
PROVIDERS: ADMIT Emergency Medicine; ATTEND Family Medicine
DX: R07.89 Other chest pain (principal); R05 Cough; R06.00 Dyspnea, unspecified; E11.9 Type 2 diabetes mellitus without complications; E78.5 Hyperlipidemia, unspecified; I48.0 Paroxysmal atrial fibrillation; I10 Essential (primary) hypertension; Z79.899 Other long term (current) drug therapy; Z79.84 Long term (current) use of oral hypoglycemic drugs; Z79.02 Long term (current) use of antithrombotics/antiplatelets; Z87.891 Personal history of nicotine dependence; Z82.49 Family history of ischemic heart disease and other diseases of the circulatory system
CPT/HCPCS: 93005 ×2; 99285; 96374; 36415 ×2; 82553; 82962; 82550; 83735; 85025; 85027; 80048; 80053; 81001; 84484 ×2; 83036; 71045; 71275; 93010 ×2; A9270 ×16; J0360; J2270 ×2; J3480; J3490